=== PATIENT | female | born 1990 | race Caucasian/White ===

== ENCOUNTER 2020-10-10 06:43 | Emergency (ER) | payer OTHER ==
[~2020-10-10 06:43] MED LIST: COLACE 100MG C100 MG PO; IBUPROFEN600 MG PO; LORTAB 5-325 M1 EACH PO; SYNTHROID75 MCG PO; VALTREX 500 MG500 MG PO
[2020-10-10] MEDS ORDERED: BACTRIM DS TAB1 EACH PO (09:39)
[2020-10-10] MEDS ORDERED: IBU600 MG PO (09:39)
== END 2020-10-10 10:30 | disposition home or self-care (01) ==
LOC: ER1 06:43
DX: L02.412 Cutaneous abscess of left axilla (principal); F17.200 Nicotine dependence, unspecified, uncomplicated; Z88.1 Allergy status to other antibiotic agents
CPT/HCPCS: 10060; 87070; 87077; 87186; 87205; 99283

== ENCOUNTER 2021-12-31 07:09 | Inpatient (IN) | payer OTHER ==
[~2021-12-31] VITALS: Ht 157.5 cm; Wt 96.2 kg
[~2021-12-31 07:09] MED LIST changes: +BACTRIM DS TAB1 EACH PO; +IBU600 MG PO
[2021-12-31] MEDS ORDERED: AUGMENTIN 500-500 MG PO (07:21)
[2021-12-31] MEDS ORDERED: LEVOTHYROXINE100 MC2 PO (07:21)
[2021-12-31] MEDS ORDERED: PRENATAL VITAM1 EAC8 PO (07:22)
[2021-12-31] MEDS ORDERED: ZYRTEC10 MG PO (07:22)
[2021-12-31 08:17] LABS: HEMOGLOBIN 11.7 gm/dl (12.3-15.3); RED BLOOD COUNT 4.01 M/UL (4.00-5.10); WHITE BLOOD COUNT 14.7 K/UL (4.5-11.0)
[2021-12-31] MEDS ORDERED: HYDROCODON-ACE1 EAC2 PO (11:57)
[2021-12-31] MEDS ORDERED: IBUPROFEN800 MG PO (11:57)
[2021-12-31] MEDS ORDERED: COLACE 100MG C100 MG PO (11:57)
[2022-01-01 04:50] LABS: HEMOGLOBIN 10.5 gm/dl (12.3-15.3)
== END 2022-01-01 17:47 | disposition home or self-care (01) | DRG 788 ==
LOC: OB 07:09
PROVIDERS: Obstetrics & Gynecology; ADMIT Obstetrics & Gynecology
PROC: 3E0234Z Introduction of Serum, Toxoid and Vaccine into Muscle, Percutaneous Approach (ICD-10-PCS; 2021-12-31)
PROC: 10D00Z1 Extraction of Products of Conception, Low, Open Approach (ICD-10-PCS; principal; 2021-12-31 07:30)
DX: O34.211 Maternal care for low transverse scar from previous cesarean delivery (principal); Z37.0 Single live birth; Z3A.39 39 weeks gestation of pregnancy; O99.52 Diseases of the respiratory system complicating childbirth; J45.909 Unspecified asthma, uncomplicated; O99.284 Endocrine, nutritional and metabolic diseases complicating childbirth; E03.9 Hypothyroidism, unspecified; Z20.822 Contact with and (suspected) exposure to COVID-19; Z28.310 Unvaccinated for COVID-19; Z88.8 Allergy status to other drugs, medicaments and biological substances; Z82.49 Family history of ischemic heart disease and other diseases of the circulatory system; Z90.89 Acquired absence of other organs; Z98.890 Other specified postprocedural states; Z87.59 Personal history of other complications of pregnancy, childbirth and the puerperium; Z86.16 Personal history of COVID-19; Z23 Encounter for immunization
CPT/HCPCS: 81001; 82800; 85014; 85018; 85025; 85461; 86850; 86900; 86901; 90715; C9113; J1580; J1885; J2250; J2274; J2370; J2405; J2590; J2790; J3010; J7120

== ENCOUNTER 2022-01-23 18:14 | Emergency (ER) | payer OTHER ==
[~2022-01-23 18:14] MED LIST changes: +AUGMENTIN 500-500 MG PO; +HYDROCODON-ACE1 EAC2 PO; +IBUPROFEN800 MG PO; +LEVOTHYROXINE100 MC2 PO; +PRENATAL VITAM1 EAC8 PO; +ZYRTEC10 MG PO
== END 2022-01-23 20:30 | disposition home or self-care (01) ==
LOC: ER1 18:14
DX: R10.13 Epigastric pain (principal)
CPT/HCPCS: 99283

== ENCOUNTER → 2022-01-27 | Outpatient (CLI) | payer OTHER | LOC: KOH-I 08:27 | DX: R10.13 Epigastric pain (principal); K80.20 Calculus of gallbladder without cholecystitis without obstruction | CPT/HCPCS: 76705 ==